=== PATIENT | female | born 1935 | race Caucasian/White ===

== ENCOUNTER 2018-02-02 08:56 | Inpatient (IN) ==
[2018-02-02] MEDS ORDERED: ONDANSETRON 4 MG/2 ML INJECTION IVP ONE (09:22)
[2018-02-02] MEDS ORDERED: NS 500 ML IV ONE (09:22)
--- NOTE | 2018-02-02 09:22 | Emergency Department Report ---
General Adult HPI - General Chief complaint: Medical Emergency Stated complaint: fall Time Seen by Provider: 02/02/18 09:16 - Related Data Home Medications Medication Instructions Recorded Confirmed Aspirin [Aspirin EC] 81 mg PO DAILY 12/16/17 12/20/17 Atorvastatin [Lipitor] 20 mg PO HS 12/16/17 12/20/17 Famotidine [Pepcid] 20 mg PO ACB 12/16/17 12/20/17 Latanoprost 1 drop EACH EYE HS 12/16/17 12/20/17 Losartan [Cozaar] 100 mg PO DAILY 12/16/17 12/20/17 Previous Rx's Medication Instructions Recorded Advair Diskus (Fluticasone 250 1 puff INH DAILY #60 each 12/19/17 mcg-salmeterol 50 mcg)dose powdr for inhalation Zyrtec (Cetirizine) 10 mg tablet 10 mg PO DAILY #90 tab 12/20/17 Prilosec (Omeprazole) 20 mg 20 mg PO ACB #30 cap 01/17/18 capsule,delayed release levothyroxine 50 mcg tablet 50 mcg PO ACB #30 tab 01/17/18 Allergies Allergy/AdvReac Type Severity Reaction Status Date / Time amlodipine [Norvasc] Allergy Verified 12/16/17 10:24 enalaprilat [From Vasotec] Allergy Verified 12/16/17 10:24 propranolol [From Inderal LA] Allergy Verified 12/16/17 10:24 [facility] Patient Stated Medical History Seizures Yes Transient Ischemic Attacks ( Yes TIA) Hypertension Yes Myocardial Infarction No Asthma Yes Pneumonia Yes Diabetes Mellitus Type 1 No Diabetes Mellitus Type 2 No Hx Urinary Tract Infection Yes Clinic Medical History (Last Reviewed 10/12/17 @ 15:05 by Nancy Parrish [facility]) Gastroesophageal reflux (Chronic Medical) Allergic asthma (Chronic Medical) Diverticula of colon (Chronic Medical) on colonoscopy 2005 History of gout (Acute Medical) History of CVA (cerebrovascular accident) (Chronic Medical) 12/2014 History of seizure (Chronic Medical) 12/2014, associated with CVA IFG (impaired fasting glucose) (Chronic Medical) Hypercholesterolemia (Chronic Medical) HTN (hypertension) (Chronic Medical) History of West Nile virus infection (Acute Medical) Surgical History: T & A. Tubal Ligation. cholecystectomy - 10/2009. Colonoscopy 08/2006 - moderately severe diverticular disease Family History: Family History (Last Reviewed 10/12/17 @ 15:05 by Nancy Parrish [facility]) Father , 87 No problems noted. Mother , 94 No problems noted. Maternal Aunt High blood pressure Diabetes Family hx-leukemia - Social History Smoking status: Never smoker Alcohol intake frequency: holidays/special occasions only Household members: spouse Course Vital Signs Temperature 97.1 F 02/02/18 08:57 Pulse Rate 80 02/02/18 08:57 Respiratory Rate 18 02/02/18 08:57 Blood Pressure 197/93 H 02/02/18 08:57 Pulse Oximetry 95 02/02/18 08:57 Temperature 97.1 F 02/02/18 08:57 Pulse Rate 80 02/02/18 08:57 Respiratory Rate 18 02/02/18 08:57 Blood Pressure 197/93 H 02/02/18 08:57 Pulse Oximetry 95 02/02/18 08:57 Disposition Prescriptions: No Action Latanoprost 1 drop EACH EYE HS Famotidine [Pepcid] 20 mg PO ACB Atorvastatin [Lipitor] 20 mg PO HS Aspirin [Aspirin EC] 81 mg PO DAILY Losartan [Cozaar] 100 mg PO DAILY Zyrtec (Cetirizine) 10 mg tablet 10 mg PO DAILY #90 tab levothyroxine 50 mcg tablet 50 mcg PO ACB #30 tab Prilosec (Omeprazole) 20 mg capsule,delayed release 20 mg PO ACB #30 cap Advair Diskus (Fluticasone 250 mcg-salmeterol 50 mcg)dose powdr for inhalation 1 puff INH DAILY #60 each Referrals: Elba Ramirez APRN [Primary Care Provider] - Ash Lopez MD [Family Provider] -
[2018-02-02] MEDS ORDERED: ALBUTEROL/IPRATROPIUM 2.5mg-0.5mg/3ml NEB AEROSOL ONE (09:23)
[2018-02-02] MEDS: SALINE FLUSH 10ml SYRINGE IVF PRN ×3 (09:52→21:49)
--- NOTE | 2018-02-02 10:29 | XRay Report ---
Indication: productive cough, weakness PROCEDURE: XR chest 1V: Encounter: Initial Comparison: December 16, 2017 Findings: Stable appearance of the chest with right upper lobe scarring. No focal pneumonia, pleural effusion or pneumothorax. Heart size and mediastinal contours are within normal limits. Pulmonary vascularity is normal. Impression: No acute cardiopulmonary disease. .
--- NOTE | 2018-02-02 12:33 | CT Scan Report ---
Indication: question right lower extremity weakness question stroke PROCEDURE: CT head/brain wo con: Encounter: Initial Comparison: December 16, 2017 Technique: Axial CT images through the head were performed without contrast. Iterative Reconstruction dose reducing technique was utilized. FINDINGS: Mild generalized atrophy. The ventricles are of normal size, shape, and contour for the patient's age. Old lacunar infarct in the left caudate. There are scattered areas of low attenuation in the white matter which most likely represent changes from chronic microvascular ischemia. The brainstem, cerebellum, and cerebral hemispheres otherwise have a normal morphology and CT attenuation. There is no evidence of midline displacement. No hemorrhage, signs of acute territorial stroke, mass effect, mass lesions, or edema is evident. The visualized portions of the skull base, midface, and calvarium demonstrate no abnormality. The paranasal sinuses are well aerated and free of significant disease. The tympanic and mastoid cavities appear normal. IMPRESSION: No acute intracranial abnormality or hemorrhage. .
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
[2018-02-02 14:02] VITALS: BMI 28.2
--- NOTE | 2018-02-02 15:16 | XRay Report ---
Indication: right foot pain, dorsal aspect midfoot PROCEDURE: XR foot RT min 3V: Encounter: Initial Comparison: None Findings: There is no acute fracture, dislocation or malalignment identified. Impression: No acute osseous abnormality. .
[2018-02-02] MEDS ORDERED: NS FLUSH BAG 500ml IV PRN (16:18)
[2018-02-02] MEDS: MAGNESIUM SULFATE 1gm PREMIX 1 GM/100 ML BAG IV SCH ×2 (16:45→17:55)
--- NOTE | 2018-02-02 17:09 | Magnetic Resonance Report ---
Indication: stroke-like symptoms PROCEDURE: MR head/brain wo con: Encounter: Initial Comparisons: Head CT from today Technique: Multiplanar, multisequence, MR imaging of the head without contrast was acquired. FINDINGS: Mild generalized atrophy.: Left caudate lacunar infarct. The ventricles are of normal size, shape, and contour for the patient's age. There are small nonspecific punctate areas of T2-weighted and T2 FLAIR weighted signal abnormality in the deep frontoparietal white matter that most likely represent small vessel ischemic disease. This is slightly advanced for the patient's age. The brain stem, cerebellum, and cerebral hemispheres otherwise have a normal morphologic appearance as well as MR signal intensity on all pulse sequences. There are no areas of restricted diffusion on diffusion weighted imaging to suggest an acute infarct. There is no evidence of an intracranial mass lesion, intracranial hemorrhage, or hydrocephalus. The visualized portions of the orbits, calvarium, paranasal sinuses, and skull base demonstrate no significant abnormality. IMPRESSION: No acute intracranial hemorrhage or infarct. 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 .
--- NOTE | 2018-02-02 17:17 | Ultrasound Report ---
Indication: stroke symptoms PROCEDURE: US carotid doppler BI: TECHNIQUE: Grayscale, color and duplex Doppler imaging was performed of the carotid systems bilaterally. Velocities in cm/sec - validated velocity measurements with angiographic measurements, velocity criteria are extrapolated from diameter data as defined by the Society of Radiologists in Ultrasound Consensus Conference Radiology 2003; 229;340-346. RIGHT: PSV ICA 76 EDV ICA 18 PSV CCA 66 EDV CCA 10 SVR 1.0 PSV ECA 72 ICA Diameter reduction 10%-30% (1.0-1.2 PSV<110)% LEFT: PSV ICA 49 EDV ICA 10 PSV CCA 77 EDV CCA 11 SVR 0.6 PSV ECA 98 ICA Diameter reduction 10%-30% (1.0-1.2 PSV<110)% The right vertebral artery is patent with cephalic flow. The left vertebral artery is patent with cephalic flow. Mild plaque in the carotid bulbs and proximal ICAs. No focal velocity elevation. IMPRESSION: No hemodynamically significant carotid stenosis. .
[2018-02-02] MEDS: EYE EACH EYE SCH (20:42)
[2018-02-02] MEDS: LATANOPROST 0.005% EACH EYE SCH (20:42)
[2018-02-02] MEDS: --POM--ATORVASTATIN 20 MG TABLET PO SCH (20:43)
[2018-02-02] MEDS ORDERED: ONDANSETRON 4 MG/2 ML INJECTION IVP PRN (21:45)
[2018-02-03] MEDS: LOSARTAN 100 MG PO SCH ×2 (04:44→08:29)
[2018-02-03] MEDS: FLUTICASONE ORAL INH SCH (04:56)
[2018-02-03] MEDS: SALMETEROL ORAL INH SCH (04:56)
[2018-02-03] MEDS: --POM--OMEPRAZOLE 20 MG CAPSULE PO SCH (06:07)
[2018-02-03] MEDS: --POM--FAMOTIDINE 20 MG TABLET PO SCH (06:07)
[2018-02-03] MEDS: --POM--LEVOTHYROXINE 50 MCG TABLET PO SCH (06:07)
[2018-02-03] MEDS: CETIRIZINE 10 MG PO SCH (08:16)
[2018-02-03] MEDS: ASPIRIN *EC* 81 MG TABLET PO SCH (08:16)
[2018-02-03] MEDS: CARVEDILOL 6.25 MG TABLET PO SCH ×2 (09:38→17:32)
[2018-02-03] MEDS ORDERED: GUAIFENESIN 400MG TABLET PO PRN (15:36)
--- NOTE | 2018-02-03 15:38 | Progress Note ---
- Date 02/03/18 Subjective: Angella was audibly wheezing. She doesn't usually wheeze at home and doesn't have a rescue inhaler either. She also developed some LLQ abdominal pain today. She has not had diarrhea -- one of her daughters is worried about a parasite infection b/c Angella has been in [facility] before (last time was about 5 years ago ). She denies chest pain. She denies n/v. Angella is still weak and had a fall yesterday while in the bathroom. She has an intermittent cough but was coughing more frequently during this visit today compared to when I saw her yesterday. Objective Vital signs: Temperature 98.6 F 02/03/18 11:14 Pulse Rate 80 02/03/18 11:14 Respiratory Rate 16 02/03/18 11:14 Blood Pressure 147/78 H 02/03/18 11:14 Pulse Oximetry 91 02/03/18 11:14 Height/Weight/BMI: Height 1.55 m Weight 67.9 kg Body Mass Index 28.2 - Constitutional Present: no acute distress, well nourished, well developed - Routine HEENT Exam Head: Present: normocephalic Eye: Absent: conjunctival icterus, scleral injection - Routine Respiratory Exam Present: accessory muscle use, wheezes - Routine Cardiovascular Exam Present: RRR, S1, S2 - Routine Abdominal Exam Present: soft, normoactive bowel sounds, tenderness (left lower quadrant), non distended - Routine Extremities Exam Present: no edema, pulses intact, normal capillary refill - Routine Musculoskeletal Exam Musculoskeletal: Present: moving extremities well - Routine Skin Exam Present: intact, dry, warm - Routine Neurological Exam Present: alert, moving all extremities - Routine Psychiatric Exam Present: normal affect, normal thought process, cooperative Results - Labs CBC & Chem 7: 02/02/18 09:07 02/03/18 04:43 Assessment and Plan Assessment and Plan: ASSESSMENT Weakness Encephalopathy - improving Hypomagnesemia, POA Mild hypokalemia, POA HTN Hyperlipidemia Hypothyroidism History of stroke in 2014 without residual deficit History of West Nile History of seizures, 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 Also with intermittent cough -- may repeat CXR. Imaging reports reviewed: Brain MRI neg for infarct; carotid doppler shows no significant stenosis. Mg improved to 2.0. K improved to 3.7. BP has been elevated and Dr. Martinez added Coreg 6.25 mg BID; continue Losartan 100 mg daily. LLQ pain - no constipation but no diarrhea either. UA negative for UTI. No n/v. Monitor; discuss with attending. PT recommends IRU. OT: MELI = 9, which means Angella would need assistance living in the community. DVT Prophylaxis: SCD's GI Prophylaxis: Pepcid Resuscitation Status: Do Not Resuscitate - Physician Narrative Physician: Lisa Martinez MD Narrative: Date: 02/03/18 Time: 1720 I have independently evaluated and examined this patient. I reviewed the chart, the patient's history, and the CORPORATE MEETING PLANNER/PA's documented findings as above. We discussed and formulated the assessment and plan as above with additions as below: Mrs. Boss was seen with her daughter at the bedside. Patient was napping at the time of my evaluation but awoke briefly offering little information. She denied pain in her foot today and reported she continued to have trouble walking. She denied diarrhea. Respirations are nonlabored. There is wheezing in the anterior lung lyons- largely sounds upper airway and partially clears with cough. Ceramic Sprayer are symmetric; persistent weakness right lower extremity relative to left but no sensory changes described. Patient denies radicular pain in the right lower extremity or sensory loss. No evidence of acute stroke by MRI; patient denies right lower extremity weakness with past stroke. Monitor orthostatic blood pressures with addition of carvedilol. Hospital Course Summary Disclaimer: The visit summary below is not to be considered part of the above Progress Note. Hospital Course: 02/02/18 Admit, observation status. Stroke workup: MRI brain, carotid Doppler, lipid panel in a.m. Continue statin and aspirin. Consult PT and OT. Ask OT to perform Meli evaluation. Will ask speech to see because of cognitive difficulty yesterday. Daughter and both state she had a recent echocardiogram with Dr. Lozano. There is an informal report on the measurements showing an EF of 45%, PAP 28 mmHg, and mild valvular regurgitation in 2017. I didn't see a report by Dr. Lozano. Replace magnesium potassium and recheck BMP in a.m. Xray right foot d/t reported pain with weight bearing: no acute fractures. Advanced directives: Daughter Sade is DPOA; requests DNR status. Also would like to be DNR -- recommend to speak with Dr. Lopez to have a DNR order outside of the hospital. 02/03/18 Wheezing today -- albuterol treatment ordered. Also with intermittent cough -- may repeat CXR. Imaging reports reviewed: Brain MRI neg for infarct; carotid doppler shows no significant stenosis. Mg improved to 2.0. K improved to 3.7. BP has been elevated and Dr. Martinez added Coreg 6.25 mg BID; continue Losartan 100 mg daily. LLQ pain - no constipation but no diarrhea either. UA negative for UTI. No n/v. Monitor; discuss with attending. PT recommends IRU. OT: MELI = 9, which means Angella would need assistance living in the community.
[2018-02-03] MEDS: ALBUTEROL 2.5mg/0.5ml (0.5%) NEB AEROSOL PRN ×2 (15:40→21:36)
[2018-02-03] MEDS ORDERED: DEXTROMETHORPHAN 30 MG/5 ML PO PRN (16:14)
[2018-02-03] MEDS ORDERED: FLUTICASONE 50 MCG EA NOSTRIL PRN (17:30)
[2018-02-03] MEDS ORDERED: ACETAMINOPHEN 650 MG/20.3 ML SOLUTION PO PRN (22:08)
[2018-02-03] MEDS ORDERED: ACETAMINOPHEN 325 MG TABLET PO PRN (22:21)
[2018-02-03] MEDS: --POM--ATORVASTATIN 20 MG TABLET PO SCH (22:25)
[2018-02-03] MEDS: LATANOPROST 0.005% EACH EYE SCH (22:26)
[2018-02-03] MEDS: EYE EACH EYE SCH (22:26)
[2018-02-04] MEDS: --POM--LEVOTHYROXINE 50 MCG TABLET PO SCH (06:02)
[2018-02-04] MEDS: --POM--FAMOTIDINE 20 MG TABLET PO SCH (06:03)
[2018-02-04] MEDS: --POM--OMEPRAZOLE 20 MG CAPSULE PO SCH (06:03)
[2018-02-04] MEDS: ALBUTEROL 2.5mg/0.5ml (0.5%) NEB AEROSOL PRN (06:11)
[2018-02-04] MEDS: CETIRIZINE 10 MG PO SCH (08:25)
[2018-02-04] MEDS: ASPIRIN *EC* 81 MG TABLET PO SCH (08:25)
[2018-02-04] MEDS: CARVEDILOL 6.25 MG TABLET PO SCH ×2 (08:25→16:48)
[2018-02-04] MEDS: CHOLECALCIFEROL 1000 UNIT PO SCH (08:27)
[2018-02-04] MEDS: LOSARTAN 100 MG PO SCH (08:30)
--- NOTE | 2018-02-04 08:36 | XRay Report ---
INDICATION: cough, new O2 requirement PROCEDURE: CHEST 2-VIEWS UPRIGHT (PA & LAT) Encounter: Initial Comparison: February 02, 2018 Findings: The lungs are stable in appearance without new focal airspace consolidation. There is no pleural effusion or pneumothorax. The heart size, pulmonary vascularity and mediastinal contours are unchanged. IMPRESSION: Stable appearance of the chest without acute cardiopulmonary disease. .
[2018-02-04] MEDS: FLUTICASONE ORAL INH SCH (09:08)
[2018-02-04] MEDS: SALMETEROL ORAL INH SCH (09:08)
--- NOTE | 2018-02-04 09:31 | XRay Report ---
Indication: wheezing PROCEDURE: XR chest 1V: Encounter: Initial Comparison: February 03, 2018 Findings: Lungs are stable in appearance with right upper lobe scarring. No focal consolidative pneumonia, pleural effusion or pneumothorax. Heart size, mediastinal contours and pulmonary vascularity are stable. Impression: Stable chest without acute cardiopulmonary disease. There is a preliminary report by [facility]. .
[2018-02-04] MEDS: NS 1,000 ML IV SCH (11:43)
[2018-02-04] MEDS: SALINE FLUSH 10ml SYRINGE IVF PRN (11:43)
--- NOTE | 2018-02-04 14:10 | Progress Note ---
- Date 02/04/18 Subjective: The patient was seen this morning in her room. She had a fever of 100.7 last night. She had intermittent hypoxia requiring 1 L of oxygen last night. She has increased cough and wheezing. She has had poor by mouth intake with decreased urine output and increase of BUN to 28 and creatinine to 1.6. She denies any lightheadedness. She denies shortness of breath at this time but does notice wheezing and cough. She denies any pain. Her foot is no longer painful. She denies any chest pain, headache or abdominal pain. She denies any neck stiffness. She denies feeling confused but does admit that she is thinking more slowly. Her daughter states she continues to have some intermittent difficulties with memory. She stated this morning she grabbed her coffee cup and put it up to her mouth but then seemed to have difficulty knowing how to drink her coffee. Objective Vital signs: Temperature 97.9 F 02/04/18 12:40 Pulse Rate 68 02/04/18 12:40 Respiratory Rate 16 02/04/18 12:40 Blood Pressure 157/75 H 02/04/18 12:40 Pulse Oximetry 92 02/04/18 13:11 Height/Weight/BMI: Height 1.55 m Weight 68.3 kg Body Mass Index 28.2 Comments: O2 sat 87% last night on room air, O2 was initiated overnight. this morning O2 sat was 89% on room air requiring O2 at 1 L to be restarted. Urine output today only 200 ML's GEN-awake but somewhat drowsy, occasionally falls asleep while I'm trying to talk with her. Oriented to hospital, 2018, initially states it is February, but then later corrects herself and states it is January HEENT-sclera anicteric, oropharynx is moist NECK-supple, carotids are silent CV-regular rate and rhythm CHEST-mild wheezing, productive cough, no rhonchi ABD-soft, nontender with positive bowel sounds -no [place] EXT-no edema, no SCDs NEURO-cranial nerves II through XII are grossly intact, motor strength is equal in all 4 extremities SKIN-warm and dry Results - Labs CBC & Chem 7: 02/04/18 04:26 02/04/18 04:26 Labs: Para-Influenza 3 was positive on viral respiratory panel today Pro-calcitonin is normal Magnesium was normal yesterday at 2.0 TSH is mildly elevated at 5.19. Free T4 is pending. Vitamin B 12 is pending. Phosphorus is mildly elevated at 4.9. - ABG Interpretation ABG results: 02/03/18 22:17 ABG pH 7.380 ABG pCO2 40 ABG pO2 81.8 ABG HCO3 23.6 ABG Total CO2 24.8 ABG O2 Saturation 95.8 ABG Base Excess -1.4 - Impressions X-ray today on my read and per radiology shows stable chest without acute cardiopulmonary disease Assessment and Plan Assessment and Plan: ASSESSMENT parainfluenza virus 3 Asthma exacerbation Intermittent hypoxia Acute kidney injury likely secondary to dehydration Mild oliguria today Dehydration with poor by mouth intake Weakness Encephalopathy - improving but not resolved Hypomagnesemia, POA-resolved Mild hypokalemia, POA-resolved HTN Hyperlipidemia Hypothyroidism History of stroke in 2014 without residual deficit History of [place] History of seizures, related to either stroke or [place] Gout PLAN Due to asthma exacerbation with intermittent hypoxia, poor by mouth intake, poor urine output, acute kidney injury, will start IV fluids, give scheduled breathing treatments, monitor continuous oximetry and give supplemental oxygen as needed. Discussed with case management and will change to inpatient status. Discussed with the patient's nurse and will encourage by mouth fluids. Discussed with family. Supportive care for para Influenza virus Possible transfer to IRU if still having generalized weakness and okayed by insurance. Repeat CBC and basic metabolic profile tomorrow Post void Bladder scan was obtained and was 0 Weight vitamin B 12 level and free T4 level. If encephalopathy worsens or weakness worsens, consider neurology consult. CT head, MRI, carotid Dopplers, chest x-ray, foot x-ray were all reviewed. Lab was all reviewed today. DVT Prophylaxis: SCD's Resuscitation Status: Do Not Resuscitate - Time spent with patient Time with patient PN: 35 minutes - Physician Narrative Physician: Madison Lema MD Narrative: Date: 02/04/18 Time: 1405 Hospital Course Summary Disclaimer: The visit summary below is not to be considered part of the above Progress Note. Hospital Course: 02/02/18 Admit, observation status. Stroke workup: MRI brain, carotid Doppler, lipid panel in a.m. Continue statin and aspirin. Consult PT and OT. Ask OT to perform Meli evaluation. Will ask speech to see because of cognitive difficulty yesterday. Daughter and both state she had a recent echocardiogram with Dr. Lozano. There is an informal report on the measurements showing an EF of 45%, PAP 28 mmHg, and mild valvular regurgitation in 2017. I didn't see a report by Dr. Lozano. Replace magnesium potassium and recheck BMP in a.m. Xray right foot d/t reported pain with weight bearing: no acute fractures. Advanced directives: Daughter Sade is DPOA; requests DNR status. Also would like to be DNR -- recommend to speak with Dr. Lopez to have a DNR order outside of the hospital. 02/03/18 Wheezing today -- albuterol treatment ordered. Also with intermittent cough -- may repeat CXR. Imaging reports reviewed: Brain MRI neg for infarct; carotid doppler shows no significant stenosis. Mg improved to 2.0. K improved to 3.7. BP has been elevated and Dr. Martinez added Coreg 6.25 mg BID; continue Losartan 100 mg daily. LLQ pain - no constipation but no diarrhea either. UA negative for UTI. No n/v. Monitor; discuss with attending. PT recommends IRU. OT: MELI = 9, which means Angella would need assistance living in the community.
[2018-02-04] MEDS: ALBUTEROL 2.5mg/0.5ml (0.5%) NEB AEROSOL SCH (15:08)
[2018-02-04] MEDS: EYE EACH EYE SCH (20:42)
[2018-02-04] MEDS: LATANOPROST 0.005% EACH EYE SCH (20:42)
[2018-02-04] MEDS: --POM--ATORVASTATIN 20 MG TABLET PO SCH (20:43)
[2018-02-05] MEDS: ALBUTEROL 2.5mg/0.5ml (0.5%) NEB AEROSOL SCH ×5 (00:38→20:54)
[2018-02-05] MEDS: NS 1,000 ML IV SCH ×2 (01:50→14:28)
[2018-02-05] MEDS: --POM--LEVOTHYROXINE 50 MCG TABLET PO SCH (06:38)
[2018-02-05] MEDS: --POM--OMEPRAZOLE 20 MG CAPSULE PO SCH (06:38)
[2018-02-05] MEDS: --POM--FAMOTIDINE 20 MG TABLET PO SCH (06:39)
[2018-02-05] MEDS: ASPIRIN *EC* 81 MG TABLET PO SCH (08:20)
[2018-02-05] MEDS: CARVEDILOL 6.25 MG TABLET PO SCH ×2 (08:20→18:25)
[2018-02-05] MEDS: CHOLECALCIFEROL 1000 UNIT PO SCH (08:20)
[2018-02-05] MEDS: CETIRIZINE 10 MG PO SCH (08:20)
[2018-02-05] MEDS: FLUTICASONE ORAL INH SCH (09:30)
[2018-02-05] MEDS: SALMETEROL ORAL INH SCH (09:30)
[2018-02-05] MEDS: ALBUTEROL/IPRATROPIUM 2.5mg-0.5mg/3ml NEB AEROSOL SCH ×3 (10:37→20:49)
[2018-02-05] MEDS: CYANOCOBALAMIN (B-12) 1,000mcg/ml INJECTION IM SCH (11:02)
--- NOTE | 2018-02-05 15:01 | Progress Note ---
- Date 02/05/18 Subjective: Angella reports that she is doing better. She denies wheezing or shortness of breath today. She has an occasional cough. She denies any abdominal pain or nausea. She is still weak in general. Both she and her know that she will need to get stronger before she goes home. Objective Vital signs: Temperature 97.3 F 02/05/18 11:00 Pulse Rate 59 L 02/05/18 11:45 Respiratory Rate 20 02/05/18 11:10 Blood Pressure 134/71 02/05/18 11:00 Pulse Oximetry 94 02/05/18 11:45 Height/Weight/BMI: Weight 68.8 kg - Constitutional Present: no acute distress, well nourished, well developed - Routine HEENT Exam Head: Present: normocephalic Eye: Present: PERRL. Absent: conjunctival icterus, scleral injection - Routine Respiratory Exam Present: wheezes (scattered occasional) - Routine Cardiovascular Exam Present: RRR, S1, S2 - Routine Abdominal Exam Present: soft, normoactive bowel sounds, non distended, non tender - Routine Extremities Exam Present: no edema - Routine Skin Exam Present: intact, dry, warm - Routine Neurological Exam Present: alert, oriented X3, normal speech - Routine Psychiatric Exam Present: normal affect, normal thought process, cooperative Results - Labs CBC & Chem 7: 02/05/18 04:33 02/05/18 04:33 Assessment and Plan Assessment and Plan: ASSESSMENT parainfluenza virus 3 Asthma exacerbation Intermittent hypoxia Acute kidney injury likely secondary to dehydration - resolved Mild oliguria today Dehydration with poor by mouth intake Weakness Encephalopathy - improving but not resolved Hypomagnesemia, POA-resolved Mild hypokalemia, POA-resolved HTN Hyperlipidemia Hypothyroidism History of stroke in 2014 without residual deficit History of [place] History of seizures, related to either stroke or [place] Gout PLAN Renal function has improved, creatinine has decreased from 1.6 yesterday to 1.2 today. Her oral fluid intake is improving, though her appetite is variable. Vitamin B12 level came back low at 209. Dr. Lema has already initiated vitamin B12 supplementation. TSH was minimally abnormal at 5.19. Free T4 was normal at 1.67. Ambulatory oximetry was done this afternoon, and the patient did not need oxygen , maintaining saturations in the mid to upper 90s. She was screened by IRU, but was not accepted. Case management is looking into other discharge options. 02/05/2018-5:55 PM-I reviewed this chart, the patient history, and the FORM WORKER's/PA 's documented findings as above. We discussed and formulated the assessment and plan as above with the additions below.-Dr. Lema The patient was seen early this afternoon accompanied by her and one of her daughters. She states she is feeling better. Her daughter states her confusion seems much better than it was on admission. The patient was able to walk with physical therapy and was able to walk farther distance and seemed a little more stable. She still needed a walker and standby assist. Renal function has improved with IV fluids and encouraging by mouth intake. Patient continues to have cough and some wheezing related to asthma exacerbation from para influenza virus infection On exam today she is alert and in no acute distress. Chest reveals mild wheezes anteriorly. Posteriorly, chest is clear. Cardiovascular reveals a regular rate and rhythm. Abdomen is soft and nontender. Extremities are free of edema. The patient appears more alert today and is not falling asleep during my visit. Pertinent lab today shows creatinine has improved to 1.2. B-12 was found to be low at 209. TSH was just minimally elevated at 5.19 Impression and plan Acute kidney injury secondary to dehydration-improved. DC IV fluids and recheck renal function tomorrow Asthma exacerbation-continue breathing treatments. Will check overnight oximetry on room air tonight. Regarding encephalopathy-this is slowly improving. Will repeat Meli evaluation tomorrow. Continue PT and OT. Physical therapist said she was stronger today and appeared more stable. The patient did not qualify for inpatient rehabilitation. We'll need to reevaluate with case management tomorrow regarding discharge planning. Possibly go to [facility] versus home with home health. Regarding B-12 deficiency-start B-12 injections. Family updated on findings and current care plan. Resuscitation Status: Do Not Resuscitate - Time spent with patient Time with patient PN: 35 minutes - Physician Narrative Physician: Madison Lema MD Narrative: Date: 02/05/18 Time: 8953 Hospital Course Summary Disclaimer: The visit summary below is not to be considered part of the above Progress Note. Hospital Course: 02/02/18 Admit, observation status. Stroke workup: MRI brain, carotid Doppler, lipid panel in a.m. Continue statin and aspirin. Consult PT and OT. Ask OT to perform Meli evaluation. Will ask speech to see because of cognitive difficulty yesterday. Daughter and both state she had a recent echocardiogram with Dr. Lozano. There is an informal report on the measurements showing an EF of 45%, PAP 28 mmHg, and mild valvular regurgitation in 2017. I didn't see a report by Dr. Lozano. Replace magnesium potassium and recheck BMP in a.m. Xray right foot d/t reported pain with weight bearing: no acute fractures. Advanced directives: Daughter Sade is DPOA; requests DNR status. Also would like to be DNR -- recommend to speak with Dr. Lopez to have a DNR order outside of the hospital. 02/03/18 Wheezing today -- albuterol treatment ordered. Also with intermittent cough -- may repeat CXR. Imaging reports reviewed: Brain MRI neg for infarct; carotid doppler shows no significant stenosis. Mg improved to 2.0. K improved to 3.7. BP has been elevated and Dr. Martinez added Coreg 6.25 mg BID; continue Losartan 100 mg daily. LLQ pain - no constipation but no diarrhea either. UA negative for UTI. No n/v. Monitor; discuss with attending. PT recommends IRU. OT: MELI = 9, which means Angella would need assistance living in the community. 02/04/18 Due to asthma exacerbation with intermittent hypoxia, poor by mouth intake, poor urine output, acute kidney injury, will start IV fluids, give scheduled breathing treatments, monitor continuous oximetry and give supplemental oxygen as needed. Discussed with case management and will change to inpatient status. Discussed with the patient's nurse and will encourage by mouth fluids. Discussed with family. Supportive care for para Influenza virus Possible transfer to IRU if still having generalized weakness and okayed by insurance. Repeat CBC and basic metabolic profile tomorrow Post void Bladder scan was obtained and was 0 02/05/18 Renal function has improved, creatinine has decreased from 1.6 yesterday to 1.2 today. Her oral fluid intake is improving, though her appetite is variable. Vitamin B12 level came back low at 209. Dr. Lema has already initiated vitamin B12 supplementation. Ambulatory oximetry was done this afternoon, and the patient did not need oxygen , maintaining saturations in the mid to upper 90s. She was screened by IRU, but was not accepted. Case management is looking into other discharge options.
[2018-02-05] MEDS: --POM--ATORVASTATIN 20 MG TABLET PO SCH (20:30)
[2018-02-05] MEDS: LATANOPROST 0.005% EACH EYE SCH (20:31)
[2018-02-05] MEDS: EYE EACH EYE SCH (20:31)
[2018-02-06] MEDS: --POM--FAMOTIDINE 20 MG TABLET PO SCH (05:41)
[2018-02-06] MEDS: --POM--LEVOTHYROXINE 50 MCG TABLET PO SCH (05:41)
[2018-02-06] MEDS: --POM--OMEPRAZOLE 20 MG CAPSULE PO SCH (05:42)
[2018-02-06] MEDS: ALBUTEROL/IPRATROPIUM 2.5mg-0.5mg/3ml NEB AEROSOL SCH ×4 (07:20→21:03)
[2018-02-06] MEDS: SALMETEROL ORAL INH SCH (07:20)
[2018-02-06] MEDS: ALBUTEROL 2.5mg/0.5ml (0.5%) NEB AEROSOL SCH (07:20)
[2018-02-06] MEDS: FLUTICASONE ORAL INH SCH (07:20)
[2018-02-06] MEDS: CARVEDILOL 6.25 MG TABLET PO SCH ×2 (08:23→17:56)
[2018-02-06] MEDS: CHOLECALCIFEROL 1000 UNIT PO SCH (08:23)
[2018-02-06] MEDS: CYANOCOBALAMIN (B-12) 1,000mcg/ml INJECTION IM SCH (08:24)
[2018-02-06] MEDS: ASPIRIN *EC* 81 MG TABLET PO SCH (08:24)
[2018-02-06] MEDS: CETIRIZINE 10 MG PO SCH (08:24)
[2018-02-06] MEDS: LOSARTAN 100 MG PO SCH (10:07)
--- NOTE | 2018-02-06 10:34 | Progress Note ---
- Date 02/06/18 Subjective: F/U: parainfluenza virus III, asthma exacerbation, hypertension. Angella is seen while resting in bed, having just finished her breakfast. She reports that she is feeling better, though complains of feeling like her voice is more horse. She states that her breathing and cough are improved. Her appetite is good and bowels are moving. Blood pressure was elevated this AM ( 190/110) and home losartan was resumed. Telemetry reveals sinus rhythm and labs are unremarkable. Patient's questions possibility of transfer to IRU for continued strengthening upon discharge from medical. PT to reassess today and reevaluate MELI. Objective Vital signs: Temperature 96.3 F L 02/06/18 07:33 Pulse Rate 78 02/06/18 10:06 Respiratory Rate 18 02/06/18 07:33 Blood Pressure 159/71 H 02/06/18 10:06 Pulse Oximetry 93 02/06/18 07:33 Rhythm: Normal Sinus Rhythm Height/Weight/BMI: Weight 153 lb 14.122 oz Comments: Resting in bed; breathing easily on room air; no cough. - Constitutional Present: no acute distress, well nourished, well developed, cooperative - Routine HEENT Exam Head: Present: normocephalic, atraumatic Eye: Present: PERRL. Absent: conjunctival icterus ENT: Present: mucous membranes moist, oropharynx clear - Routine Respiratory Exam Present: decreased breath sounds, rhonchi. Absent: accessory muscle use, respiratory distress - Routine Cardiovascular Exam Present: RRR, S1, S2 - Routine Abdominal Exam Present: soft, normoactive bowel sounds, non tender - Routine Extremities Exam Present: edema (trace), pulses intact - Routine Back/Spine/Pelvis Exam Back/Spine: Present: full ROM. Absent: vertebral tenderness - Routine Musculoskeletal Exam Musculoskeletal: Present: moving extremities well - Routine Skin Exam Present: dry, warm. Absent: jaundice Comments: afebrile - Routine Neurological Exam Present: alert, moving all extremities, hearing grossly intact, normal speech - Routine Lymphatic Exam Lymphatic: Absent: lymphedema - Routine Psychiatric Exam Present: normal affect, cooperative Results - Labs CBC & Chem 7: 02/06/18 05:26 02/06/18 05:26 Assessment and Plan (1) Weakness Problem details: With falls Current visit: Yes Status: Acute (2) Encephalopathy Current visit: Yes Status: Acute Assessment and Plan: ASSESSMENT Parainfluenza virus 3 Asthma exacerbation Intermittent hypoxia Acute kidney injury likely secondary to dehydration - resolved Mild oliguria Dehydration with poor by mouth intake Weakness Encephalopathy - improving but not resolved Hypomagnesemia, POA-resolved Mild hypokalemia, POA-resolved HTN Hyperlipidemia Hypothyroidism History of stroke in 2014 without residual deficit History of [place] History of seizures, 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 Appetite good and oral intake stable. Breathing easily on room air with improved cough. Continue B12 supplementation for deficiency. TSH was minimally abnormal at 5.19. Free T4 was normal at 1.67. Recommend repeat evaluation as outpatient with PCP in 4-6 weeks. Patient's family continues to request IRU if possible. Case management working on discharge planning. Continue respiratory cares with nebulized treatments. Encephalopathy appears to be improving - repeating MELI today - awaiting results. Continue PT and OT. Patient was able to maintain SAO2 on room air all night per night oximetry. Report on chart. Recheck labs in AM to monitor blood counts, electrolytes and renal function. Anticipate discharge in near future. DVT Prophylaxis: SCD's GI Prophylaxis: Pepcid, other (Prilosec) Resuscitation Status: Do Not Resuscitate - Time spent with patient Time with patient PN: 30 minutes - Physician Narrative Physician: Lisa Martinez MD Narrative: Date: 02/06/18 Time: 1734 I have independently evaluated and examined this patient. I reviewed the chart, the patient's history, and the [employer] OPERATOR/PA's documented findings as above. We discussed and formulated the assessment and plan as above with additions as below: Mrs. Boss was seen with her and daughter at bedside. She reported minimal cough and gave me a thumbs up sign when I asked if she was able to walk today. I subsequently discussed patient's ability to ambulate with physical therapy and they expressed concerns about patient's ability to follow instructions safely while transitioning from seated to standing positions particularly with respect to her using the walker to assist with standing up and hand placement on the walker. Once adequately positioned she ambulated well. Repeat MELI today significantly improved with score of 2 compared to 9 several days ago. NAD, alert, answers to questions typically vague Respirations nonlabored, decreased breath sounds at the right base but no wheezing or rhonchi appreciated Regular rhythm Overnight oximetry reviewed-oxygen saturation <89% for 12 minutes on room air. Significantly improved from study done the prior night. Lowest oxygen saturation recorded was 81%. Blood pressure significantly elevated this morning-losartan resumed with improvement progressively through the day. Patient has not been accepted to IRU; ongoing discussions with patient and family regarding short stay at [facility] to improve safety and increase endurance versus home with home health or outpatient therapy. Physical therapy felt patient was just on the border for recommendation of [facility] versus home with home health but was concerned about patient safety and did not feel patient should be ambulating independently at this time. Hospital Course Summary Disclaimer: The visit summary below is not to be considered part of the above Progress Note. Hospital Course: 02/02/18 Admit, observation status. Stroke workup: MRI brain, carotid Doppler, lipid panel in a.m. Continue statin and aspirin. Consult PT and OT. Ask OT to perform Meli evaluation. Will ask speech to see because of cognitive difficulty yesterday. Daughter and both state she had a recent echocardiogram with Dr. Lozano. There is an informal report on the measurements showing an EF of 45%, PAP 28 mmHg, and mild valvular regurgitation in 2017. I didn't see a report by Dr. Lozano. Replace magnesium potassium and recheck BMP in a.m. Xray right foot d/t reported pain with weight bearing: no acute fractures. Advanced directives: Daughter Sade is DPOA; requests DNR status. Also would like to be DNR -- recommend to speak with Dr. Lopez to have a DNR order outside of the hospital. 02/03/18 Wheezing today -- albuterol treatment ordered. Also with intermittent cough -- may repeat CXR. Imaging reports reviewed: Brain MRI neg for infarct; carotid doppler shows no significant stenosis. Mg improved to 2.0. K improved to 3.7. BP has been elevated and Dr. Martinez added Coreg 6.25 mg BID; continue Losartan 100 mg daily. LLQ pain - no constipation but no diarrhea either. UA negative for UTI. No n/v. Monitor; discuss with attending. PT recommends IRU. OT: MELI = 9, which means Angella would need assistance living in the community. 02/04/18 Due to asthma exacerbation with intermittent hypoxia, poor by mouth intake, poor urine output, acute kidney injury, will start IV fluids, give scheduled breathing treatments, monitor continuous oximetry and give supplemental oxygen as needed. Discussed with case management and will change to inpatient status. Discussed with the patient's nurse and will encourage by mouth fluids. Discussed with family. Supportive care for para Influenza virus Possible transfer to IRU if still having generalized weakness and okayed by insurance. Repeat CBC and basic metabolic profile tomorrow Post void Bladder scan was obtained and was 0 02/05/18 Renal function has improved, creatinine has decreased from 1.6 yesterday to 1.2 today. Her oral fluid intake is improving, though her appetite is variable. Vitamin B12 level came back low at 209. Dr. Lema has already initiated vitamin B12 supplementation. Ambulatory oximetry was done this afternoon, and the patient did not need oxygen , maintaining saturations in the mid to upper 90s. She was screened by IRU, but was not accepted. Case management is looking into other discharge options. PLAN - 02/06/18: Renal function improved - SCr down to 0.9. Appetite good and oral intake stable. Breathing easily on room air with improved cough. Continue B12 supplementation for deficiency. TSH was minimally abnormal at 5.19. Free T4 was normal at 1.67. Recommend repeat evaluation as outpatient with PCP in 4-6 weeks. Patient's family continues to request IRU if possible. Case management working on discharge planning. Continue respiratory cares with nebulized treatments. Encephalopathy appears to be improving - repeating MELI today - awaiting results. Continue PT and OT. Patient was able to maintain SAO2 on room air all night per night oximetry. Report on chart. Recheck labs in AM to monitor blood counts, electrolytes and renal function. Anticipate discharge in near future.
[2018-02-06] MEDS: --POM--ATORVASTATIN 20 MG TABLET PO SCH (20:13)
[2018-02-06] MEDS: LATANOPROST 0.005% EACH EYE SCH (20:13)
[2018-02-06] MEDS: EYE EACH EYE SCH (20:13)
[2018-02-07 05:09] VITALS: BP 163/82; TEMP 96.4
[2018-02-07] MEDS: --POM--FAMOTIDINE 20 MG TABLET PO SCH (06:38)
[2018-02-07] MEDS: --POM--OMEPRAZOLE 20 MG CAPSULE PO SCH (06:39)
[2018-02-07] MEDS: --POM--LEVOTHYROXINE 50 MCG TABLET PO SCH (06:39)
[2018-02-07] MEDS: ALBUTEROL/IPRATROPIUM 2.5mg-0.5mg/3ml NEB AEROSOL SCH ×3 (07:11→15:09)
[2018-02-07] MEDS: FLUTICASONE ORAL INH SCH (07:12)
[2018-02-07] MEDS: SALMETEROL ORAL INH SCH (07:12)
[2018-02-07 07:17] VITALS: RESP 16
[2018-02-07] MEDS ORDERED: CARVEDILOL 12.5 MG TABLET PO SCH (09:11)
[2018-02-07 10:48] VITALS: O2SAT 95
[2018-02-07] MEDS: CHOLECALCIFEROL 1000 UNIT PO SCH (11:17)
[2018-02-07] MEDS: CYANOCOBALAMIN (B-12) 1,000mcg/ml INJECTION IM SCH (11:18)
[2018-02-07] MEDS: ASPIRIN *EC* 81 MG TABLET PO SCH (11:18)
[2018-02-07] MEDS: LOSARTAN 100 MG PO SCH (11:20)
[2018-02-07] MEDS: CETIRIZINE 10 MG PO SCH (11:20)
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
[2018-02-07 17:11] VITALS: PULSE 67
== END 2018-02-07 15:55 | disposition home or self-care (01) | DRG 202 ==
LOC: ED 08:56 → MED 08:56 → SUATTDRO 12:52 → MED 13:15 → SUATTDRO 02-04 14:03
PROVIDERS: ADMIT Internal Medicine; ATTEND Internal Medicine